=== PATIENT | female | born 1975 | race Caucasian/White ===

== ENCOUNTER 2020-07-13 15:56 | Emergency (ER) | payer MEDICAID ==
[~2020-07-13] VITALS: Ht 152.4 cm; Wt 73.9 kg
[2020-07-13 16:05] VITALS: BP 102/45
--- NOTE | 2020-07-13 16:05 | NUR ---
Patient ambulated to bed 07 with steady/even gait.
--- NOTE | 2020-07-13 16:07 | NUR ---
45 YEAR OLD FEMALE COMPLAINS OF ABDOMINAL PAIN, DIARRHEA X SATURDAY. PT DENIES NAUSEA, VOMITTING, OR BLOOD IN STOOL. PT AOX4, BREATHING EVEN AND UNLABORED, SKIN WARM AND DRY. BED IN LOWEST POSITION, LOCKED, BED RAIL UPX1. PMH - DENIES ALLERGIES - NKA
--- NOTE | 2020-07-13 16:30 | NUR ---
Blood sample, urine sample collected and handed to CPT Raheem at ER bedside.
[2020-07-13 16:38] LABS: BASOPHILS % (AUTO) 0.1 % (0.0-2.0); EOSINOPHILS % (AUTO) 0.1 % (0.0-4.0); HEMATOCRIT 43.5 % (36-48); HEMOGLOBIN 14.7 g/dL (12.0-16.0); LYMPHOCYTES % (AUTO) 15.8 % (20.5-51.1); MEAN CORPUSCULAR HEMOGLOBIN 31 pg (27-31); MEAN CORPUSCULAR HGB CONC 34 g/dL (33-37); MEAN CORPUSCULAR VOLUME 90.3 fL (80-94); MONOCYTES # (AUTO) 0.4 K/uL (0.8-1.0); MONOCYTES % (AUTO) 5.7 % (1.7-9.3); NEUTROPHILS % (AUTO) 78.3 % (42.2-75.2); PLATELET COUNT (AUTO) 208 K/uL (140-450); RED BLOOD CELL COUNT(AUTO) 4.82 MIL/uL (4.20-5.40); RED CELL DISTRIBUTION WIDTH 13.1 % (11.6-13.7); WHITE BLOOD COUNT (AUTO) 6.4 K/uL (4.8-10.8)
[2020-07-13 16:38] LABS: APPEARANCE,URINE CLEAR (CLEAR); BILIRUBIN,URINE 1+ (NEGATIVE); BLOOD, URINE 3+ (NEGATIVE); COLOR,URINE YELLOW (YELLOW); LEUKOCYTE ESTERASE ,URINE NEGATIVE (NEGATIVE); NITRITE, URINE NEGATIVE (NEGATIVE); UGLUCOSE NEGATIVE (NEGATIVE)
[2020-07-13 16:55] LABS: ALBUMIN 3.8 g/dL (3.4-5.0); ANION GAP 11.9 (8-16); CREATININE 0.8 mg/dL (0.6-1.3); TOTAL BILIRUBIN 0.4 mg/dL (0.0-1.0)
--- NOTE | 2020-07-13 16:56 | NUR ---
Consent form signature obtained for CT Abdomen/Pelvis.
[2020-07-13 16:57] LABS: POTASSIUM 2.9 mmol/L (3.5-5.1)
--- NOTE | 2020-07-13 16:59 | NUR ---
Critical lab value received: Potassium 2.9. Dr. Griffin made aware.
--- NOTE | 2020-07-13 17:00 | NUR ---
Patient resting in position of comfort. Respirations even/unlabored. Bed locked in lowest position, side rails x 1, call light in reach.
[2020-07-13 17:02] LABS: RBC,URINE 20-50 /HPF (0-5); WBC,URINE 0-5 /HPF (0-5)
--- NOTE | 2020-07-13 17:24 | NUR ---
Patient transported to CT via gurney.
--- NOTE | 2020-07-13 17:40 | NUR ---
Patient returned from CT via wheelchair and placed back onto engine monitor. Bed locked in lowest position, side rails x 1, call light in reach. Respiratons even/unlabored. remains at bedside.
[2020-07-13] MEDS ORDERED: METR500T1 PO (18:42)
[2020-07-13] MEDS ORDERED: CIPR500T4 PO (18:42)
[2020-07-13] MEDS ORDERED: ACET-8386 PO (18:42)
[2020-07-13] MEDS: ONDANSETRON 4 MG/2 ML VIAL IVP ONE (18:50)
[2020-07-13] MEDS: MORPHINE SULFATE 4 MG/ML SYR IVP ONE (18:52)
[2020-07-13 19:00] VITALS: BP 119/75
--- NOTE | 2020-07-13 19:00 | NUR ---
Patient discharged with v/s stable. Written and verbal after care instructions given and explained. Patient alert, oriented and verbalized understanding of instructions. Ambulatory with steady gait. All questions addressed prior to discharge. ID band removed. Patient advised to follow up with PMD. Rx of Hydrocodone/Acetaminophen, Ciprofloxacin, Metronidazole given. Patient educated on indication of medication including possible reaction and side effects. Opportunity to ask questions provided and answered.
--- NOTE | 2020-07-13 19:03 | NUR ---
Patient reports positive relief; denies any nausea. Reports pain 2/10.
== END 2020-07-13 19:00 | disposition home or self-care (01) ==
LOC: MED 15:56
DX: K52.9 Noninfective gastroenteritis and colitis, unspecified (principal); Z79.899 Other long term (current) drug therapy; Z90.710 Acquired absence of both cervix and uterus
CPT/HCPCS: 36415; 74177; 80053; 81001; 83690; 84702; 85025; 96374; 96375; 99285; J2270; J2405; Q9967